=== PATIENT | male | born 1985 | race Caucasian/White ===

== ENCOUNTER 2020-10-11 14:13 | Emergency (ER) | payer MEDICAID, OTHER ==
[~2020-10-11] VITALS: Ht 188 cm; Wt 90.7 kg
--- NOTE | 2020-10-11 14:34 | NUR ---
patient came in to the er c/o left knee pain 7/10 pain scale. on room air, breathing evenly and unlabored. Kept comfortable, will continue to monitor accordingly.
[2020-10-11] MEDS ORDERED: IBUPROFEN 600 MG TABLET ONE (16:52)
[2020-10-11] MEDS ORDERED: IBUP-1955 PO (16:52)
[2020-10-11 16:57] VITALS: BP 118/81
--- NOTE | 2020-10-11 16:58 | NUR ---
Patient discharged to home in stable condition. Written and verbal after care instructions given. Patient verbalizes understanding of instruction.
[2020-10-11] MEDS ORDERED: IBUPROFEN 600 MG TABLET PO ONE (17:00)
== END 2020-10-11 16:57 | disposition home or self-care (01) ==
LOC: ER 14:17
DX: S89.82XA Other specified injuries of left lower leg, initial encounter (principal); X50.1XXA Overexertion from prolonged static or awkward postures, initial encounter; Y93.89 Activity, other specified; Y92.89 Other specified places as the place of occurrence of the external cause; Y99.0 Civilian activity done for income or pay
CPT/HCPCS: 73564-TC

== ENCOUNTER 2021-04-11 11:27 | Emergency (ER) | payer OTHER ==
[~2021-04-11] VITALS: Ht 188 cm; Wt 88.5 kg
[~2021-04-11 11:27] MED LIST: IBUP-1955 PO
--- NOTE | 2021-04-11 11:35 | NUR ---
Patient came in to the er c/o throat discomfort since yesterday radiating to midsternum specially when swallowing. on room air, breathing evenly and unlabored. Connected to the monitor and pulse ox. Kept comfortable, will continue to monitor accordingly.
[2021-04-11] MEDS ORDERED: IBUP-1955 PO (12:58)
[2021-04-11] MEDS ORDERED: KETOROLAC TROMETHAMINE 15 MG/ML VIAL ONE (12:59)
[2021-04-11] MEDS ORDERED: LIDOCAINE VISCOUS 2% UD 15 ML UDC ONE (12:59)
[2021-04-11] MEDS ORDERED: LIDOCAINE VISCOUS 2% UD 15 ML UDC MM ONE (13:00)
[2021-04-11] MEDS ORDERED: KETOROLAC TROMETHAMINE INJ 60 MG/2 ML VIAL IM ONE (13:00)
[2021-04-11 13:16] VITALS: BP 123/81
--- NOTE | 2021-04-11 13:16 | NUR ---
Patient discharged to home in stable condition. Written and verbal after care instructions given. Patient verbalizes understanding of instruction.
== END 2021-04-11 13:16 | disposition home or self-care (01) ==
LOC: ER 11:33
DX: J02.9 Acute pharyngitis, unspecified (principal); R07.89 Other chest pain
CPT/HCPCS: 70360; 71045; 96372; 99284; J1885